=== PATIENT | male | born 1935 | race Caucasian/White ===

== ENCOUNTER 2019-03-04 12:23 | Emergency (ER) | payer MEDICARE, OTHER ==
[~2019-03-04] VITALS: Ht 193 cm; Wt 90.9 kg
[~2019-03-04 12:23] MED LIST: AMIO200T42 PO; ENOX40SY4 SQ; FINA5TAB4 PO; GLUC1CAP48 PO; GLUC1TAB53 PO; HYDR-3240 PO; HYDR25TA6 PO; LEVO100T5 PO; LEVO88TA2 PO; LEVO88TA4 PO; MELA10TA PO; METO25TA35 PO; MEXI150C PO; MULT1TAB13 PO; POTA10TA31 PO; POTA20TA14 PO
[2019-03-04] MEDS ORDERED: ASPI-496 PO (13:00)
[2019-03-04 13:01] LABS: BASOPHILS # (AUTO) 0.02 x10^3/uL (0-0.1); BASOPHILS % (AUTO) 0 % (0-1); EOSINOPHILS # (AUTO) 0.08 x10^3/uL (0-0.4); EOSINOPHILS % (AUTO) 1 % (1-7); LYMPHOCYTES # (AUTO) 0.94 x10^3/uL (1-3.4); LYMPHOCYTES % (AUTO) 9 % (22-44); MD NO; MEAN CORPUSCULAR HEMOGLOBIN 30.4 pg (27.5-34.5); MEAN CORPUSCULAR HGB CONC 32.3 g/dL (33.2-36.2); MEAN CORPUSCULAR VOLUME 94.3 fL (81-97); MEAN PLATELET VOLUME 6.9 fL (7.4-10.4); MONOCYTES # (AUTO) 0.77 x10^3/uL (0.2-0.8); MONOCYTES % (AUTO) 7 % (2-9); NEUTROPHILS # (AUTO) 8.62 x10^3/uL (1.8-6.8); NEUTROPHILS % (AUTO) 83 % (42-75); PLATELET COUNT 216 x10^3/uL (130-400); RED BLOOD COUNT 4.28 x10^6/uL (4.38-5.82)
[2019-03-04] MEDS ORDERED: FURO40TA6 PO (13:01)
[2019-03-04] MEDS ORDERED: GLUC1TAB55 PO (13:02)
[2019-03-04 13:12] LABS: ALBUMIN 3.1 g/dL (3.4-5.0); CHLORIDE 108 mmol/L (98-107)
[2019-03-04 13:22] LABS: ALANINE AMINOTRANSFERASE 21 U/L (12-78); ALKALINE PHOSPHATASE 121 U/L (45-117); ANION GAP 4 mmol/L (5-15); BILIRUBIN,TOTAL 0.7 mg/dL (0.2-1.0); CALCIUM 9.5 mg/dL (8.5-10.1); CREATININE 1.13 mg/dL (0.7-1.3); FREE T4 (FREE THYROXINE) 1.69 ng/dL (0.76-1.46); TOTAL PROTEIN 7.2 g/dL (6.4-8.2); TROPONIN I < 0.015 ng/mL (0.000-0.045)
--- NOTE | 2019-03-04 13:51 | NUR ---
PT HAS CO OF INCREASED WEAKNESS AND FORGETFULLNESS. PT FAMILY STATES "HE COULDNT GET OFF THE TOILET HIS AM, HE IS MUCH WEAKER AND SHORT OF BREATH" PT RESTING COMFORTABLE, NOT IN DISTRESS, COMPUTER SUPPORT TECHNICIAN APPLIED.
--- NOTE | 2019-03-04 14:45 | NUR ---
WALKED PT, SATS REMAINED 90-93% ON RA, HR REMAINS 65-67. NOTIFIED MD
[2019-03-04 15:00] LABS: MICROSCOPIC NOT IND
[2019-03-04 15:13] LABS: CULTURE INDICATED? NO
--- NOTE | 2019-03-04 15:36 | NUR ---
CANCEL REPEAT EKG PER MD ORDERS.
--- NOTE | 2019-03-04 15:44 | NUR ---
FAMILY ASSISTING PATIENT W GETTING DRESSED.
[2019-03-04 15:52] VITALS: BP 136/55
--- NOTE | 2019-03-04 15:53 | NUR ---
dPatient/Caregiver given discharge instructions and they have confirmed that they understand the instructions. Patient in wheelchair to lobby
== END 2019-03-04 15:55 | disposition home or self-care (01) ==
LOC: ED 15:31
DX: R53.1 Weakness (principal); R06.00 Dyspnea, unspecified; M79.661 Pain in right lower leg; M79.662 Pain in left lower leg; I10 Essential (primary) hypertension; E03.9 Hypothyroidism, unspecified
CPT/HCPCS: 36415; 71046; 80053; 81003; 83735; 83880; 84439; 84443; 84484; 85025; 93005; 99284

== ENCOUNTER 2021-02-03 11:09 | Inpatient (IN) | payer MEDICARE ==
[~2021-02-03] VITALS: Ht 180.3 cm; Wt 90.6 kg
[~2021-02-03 11:09] MED LIST changes: +ASPI-496 PO; +FURO40TA6 PO; +GLUC1TAB55 PO; +HYDR-2214 PO; -HYDR-3240 PO; +TAMS-11 PO
--- NOTE | 2021-02-03 11:14 | NUR ---
PT BELIA FROM [facility] FOR C/O INCREASED ALTERED MENTAL STATUS FOR DAYS. FAMILY ON SCENE CALLED EMS STATING PT HAS BEEN DECREASING AMS. PT SPO2 82-88% RA ANSWERER PLACED ON 3L NC. PT [id number]. PIV R-AC. 100 NS INFUSED ANSWERER. PT CHANGED INTO GOWN, ALL MONITORS IN PLACE. CALL LIGHT WITHIN REACH. FAMILY AT BS
--- NOTE | 2021-02-03 11:14 | NUR ---
ERP AT BS
[2021-02-03] MEDS ORDERED: SODIUM CHLORIDE FLUSH 10ML SYR IVF ONE (11:30)
[2021-02-03] MEDS ORDERED: SODIUM CHLORIDE 0.9% 1,000ML IVBOLUS ONE (11:30)
[2021-02-03] MEDS ORDERED: ACETAMINOPHEN 325 MG TABLET PO ONE (11:30)
--- NOTE | 2021-02-03 11:32 | NUR ---
XRAY AT BS
[2021-02-03] MEDS ORDERED: ACETAMINOPHEN 325 MG TABLET ONE (11:33)
--- NOTE | 2021-02-03 11:49 | NUR ---
LAB AT Addendum: 02/03/21 at 1152 by [email or web address] LAB AT , BLOOD CULTURES DRAWN
[2021-02-03 12:16] LABS: BASOPHILS % (AUTO) 0 % (0-1); EOSINOPHILS % (AUTO) 0 % (1-7); LYMPHOCYTES % (AUTO) 4 % (22-44); MEAN CORPUSCULAR HGB CONC 33.1 g/dL (33.2-36.2); MEAN PLATELET VOLUME 7.5 fL (7.4-10.4); MONOCYTES % (AUTO) 7 % (2-9); NEUTROPHILS % (AUTO) 89 % (42-75); PLATELET COUNT 128 x10^3/uL (130-400); RED BLOOD COUNT 4.41 x10^6/uL (4.38-5.82); RED CELL DISTRIBUTION WIDTH 14.3 % (9.4-14.8)
--- NOTE | 2021-02-03 12:20 | NUR ---
TASK RN: PT RESTING ON GURNEY. NADN. DRUMMOND.
[2021-02-03 12:28] LABS: ALANINE AMINOTRANSFERASE 15 U/L (12-78); ANION GAP 9 mmol/L (5-15); CALCIUM 10.1 mg/dL (8.5-10.1); CHLORIDE 107 mmol/L (98-107)
[2021-02-03 12:30] LABS: ALKALINE PHOSPHATASE 100 U/L (45-117); BILIRUBIN,TOTAL 1.8 mg/dL (0.2-1.0)
[2021-02-03 12:33] LABS: MICROSCOPIC INDICATED
--- NOTE | 2021-02-03 12:42 | NUR ---
PT TO CT
--- NOTE | 2021-02-03 12:55 | NUR ---
PT BACK FROM CT
--- NOTE | 2021-02-03 12:56 | NUR ---
ANTIBX HUNG AFTER PT BACK FROM CT. PT RESTING COMFORTABLY ON GURNEY. NADN/VSS. FAMILY AT BS. CALL LIGHT WITHIN REACH
[2021-02-03] MEDS ORDERED: PIPERACILLIN/TAZO 3.375 GM in DEXTROSE 5% 50 ML IVPB ONE (13:00)
[2021-02-03] MEDS ORDERED: VANCOMYCIN PER PHARMACY MC PRN ×2 (13:00→17:00)
[2021-02-03] MEDS ORDERED: VANCOMYCIN 1,900 MG in SODIUM CHLORIDE 0.9% 250 ML IV ONE (13:00)
[2021-02-03] MEDS ORDERED: VANCOMYCIN 1,900 MG in SODIUM CHLORIDE 0.9% 250 ML IV SCH (13:30)
--- NOTE | 2021-02-03 13:56 | NUR ---
PT LAYING ON DARWIN PLASENCIA/HODA. ANTIBX INFUSING. FAMILY AT BS. CALL LIGHT WITHIN REACH
--- NOTE | 2021-02-03 14:30 | NUR ---
EDTA AT BS FOR 2ND EKG
--- NOTE | 2021-02-03 15:06 | NUR ---
[facility] PER [facility] START 2L LR FOR PT. PT RECEVIED 500ML NS PRIOR TO CONTACTING [facility].
--- NOTE | 2021-02-03 15:15 | NUR ---
Pt to be admitted to [facility], room 485. Report called to ALICE.
[2021-02-03] MEDS ORDERED: LACTATED RINGERS 1,000 ML IVBOLUS ONE (16:00)
[2021-02-03 16:47] VITALS: BP 119/76
[2021-02-03] MEDS ORDERED: ONDANSETRON 2MG/ML, 2ML IVPush PRN (17:00)
[2021-02-03] MEDS ORDERED: ACETAMINOPHEN 325 MG TABLET PO PRN (17:00)
[2021-02-03] MEDS ORDERED: PHARMACOKINETIC CONSULTATION MC ONE (17:30)
[2021-02-03] MEDS ORDERED: PHARMACOKINETIC MONITORING MC PRN (17:30)
[2021-02-03] MEDS: PIPERACILLIN/TAZO 3.375 GM in DEXTROSE 5% 50 ML IV SCH (18:25)
[2021-02-03 19:19] VITALS: BP 107/62
[2021-02-03] MEDS: POTASSIUM CHLORIDE 20 MEQ TAB.ER.PRT PO SCH (20:46)
[2021-02-03] MEDS: FINASTERIDE 5 MG TABLET PO SCH (20:46)
[2021-02-03] MEDS: TAMSULOSIN 0.4 MG CAP.ER.24H PO SCH (20:47)
[2021-02-03] MEDS: AMIODARONE 200 MG TABLET PO SCH (20:47)
[2021-02-03] MEDS: METOPROLOL TARTRATE 25 MG TAB PO SCH (20:47)
[2021-02-03] MEDS: MELATONIN 5 MG TABLET PO SCH (20:47)
[2021-02-03] MEDS: MEXILETINE 150 MG CAPSULE PO SCH (20:50)
[2021-02-03 22:30] LABS: TROPONIN I 0.156 ng/mL (0.000-0.045)
[2021-02-04] MEDS: PIPERACILLIN/TAZO 3.375 GM in DEXTROSE 5% 50 ML IV SCH ×4 (00:50→18:21)
[2021-02-04] MEDS: ATORVASTATIN 40 MG TABLET PO SCH ×2 (00:50→20:46)
[2021-02-04] MEDS ORDERED: HEPARIN 5,000 UNITS/ML, 1ML IV PRN (01:00)
[2021-02-04] MEDS ORDERED: HEPARIN 25,000 UNITS/250ML PMX 250 ML IV PRN ×2 (01:00)
[2021-02-04] MEDS ORDERED: HEPARIN 5,000 UNITS/ML, 1ML IV ONE (01:00)
[2021-02-04 01:02] VITALS: BP 99/60
[2021-02-04 01:41] LABS: CHOL/HDL RATIO 1.5; LDL/HDL RATIO 0.4 (0.5-3.0)
[2021-02-04 04:43] LABS: BASOPHILS % (AUTO) 0 % (0-1); EOSINOPHILS % (AUTO) 0 % (1-7); LYMPHOCYTES % (AUTO) 4 % (22-44); MEAN CORPUSCULAR HEMOGLOBIN 30.5 pg (27.5-34.5); MEAN CORPUSCULAR HGB CONC 33.9 g/dL (33.2-36.2); MEAN PLATELET VOLUME 7.8 fL (7.4-10.4); MONOCYTES % (AUTO) 7 % (2-9); NEUTROPHILS % (AUTO) 88 % (42-75); PLATELET COUNT 105 x10^3/uL (130-400); RED BLOOD COUNT 3.92 x10^6/uL (4.38-5.82); RED CELL DISTRIBUTION WIDTH 14.6 % (9.4-14.8)
[2021-02-04 04:50] LABS: ANION GAP 6 mmol/L (5-15); CALCIUM 9.3 mg/dL (8.5-10.1); CHLORIDE 110 mmol/L (98-107); CREATININE 0.92 mg/dL (0.7-1.3)
[2021-02-04 05:01] LABS: TROPONIN I 0.151 ng/mL (0.000-0.045)
[2021-02-04] MEDS: LEVOTHYROXINE 175 MCG TABLET PO SCH (06:03)
[2021-02-04 08:50] VITALS: BP 104/64
[2021-02-04] MEDS: MULTIVITAMINS/MINERALS TABLET PO SCH (08:59)
[2021-02-04] MEDS: METOPROLOL TARTRATE 25 MG TAB PO SCH ×2 (09:00→20:45)
[2021-02-04 11:07] LABS: TROPONIN I 0.134 ng/mL (0.000-0.045)
[2021-02-04] MEDS: ASPIRIN 81 MG TABLET EC PO SCH (12:22)
[2021-02-04] MEDS: MEXILETINE 150 MG CAPSULE PO SCH ×2 (12:22→20:46)
[2021-02-04 14:08] VITALS: BP 104/58
[2021-02-04 14:12] VITALS: BP 104/58
[2021-02-04] MEDS: VANCOMYCIN 1,900 MG in SODIUM CHLORIDE 0.9% 250 ML IV SCH (14:34)
[2021-02-04 19:20] VITALS: BP 104/61
[2021-02-04] MEDS: POTASSIUM CHLORIDE 20 MEQ TAB.ER.PRT PO SCH (20:45)
[2021-02-04] MEDS: FINASTERIDE 5 MG TABLET PO SCH (20:45)
[2021-02-04] MEDS: AMIODARONE 200 MG TABLET PO SCH (20:45)
[2021-02-04] MEDS: TAMSULOSIN 0.4 MG CAP.ER.24H PO SCH (20:46)
[2021-02-04] MEDS: MELATONIN 5 MG TABLET PO SCH (20:46)
[2021-02-05] MEDS: PIPERACILLIN/TAZO 3.375 GM in DEXTROSE 5% 50 ML IV SCH ×4 (00:38→19:28)
[2021-02-05 00:47] VITALS: BP 98/64
[2021-02-05 01:37] VITALS: BP 98/64
[2021-02-05] MEDS: LEVOTHYROXINE 175 MCG TABLET PO SCH (06:00)
[2021-02-05 08:50] VITALS: BP 102/57
[2021-02-05] MEDS: METOPROLOL TARTRATE 25 MG TAB PO SCH ×2 (09:00→22:05)
[2021-02-05] MEDS: MEXILETINE 150 MG CAPSULE PO SCH ×2 (09:51→22:04)
[2021-02-05] MEDS: ASPIRIN 81 MG TABLET EC PO SCH (09:51)
[2021-02-05] MEDS: MULTIVITAMINS/MINERALS TABLET PO SCH (09:52)
[2021-02-05 13:41] VITALS: BP 96/58
[2021-02-05] MEDS: VANCOMYCIN 1,900 MG in SODIUM CHLORIDE 0.9% 250 ML IV SCH (14:54)
[2021-02-05] MEDS: POLYETHYLENE GLYCOL 17 GM PACKET PO SCH ×2 (18:00→22:06)
[2021-02-05 19:13] VITALS: BP 111/68
[2021-02-05] MEDS: MELATONIN 5 MG TABLET PO SCH (21:00)
[2021-02-05] MEDS: AMIODARONE 200 MG TABLET PO SCH (22:03)
[2021-02-05] MEDS: ATORVASTATIN 40 MG TABLET PO SCH (22:04)
[2021-02-05] MEDS: POTASSIUM CHLORIDE 20 MEQ TAB.ER.PRT PO SCH (22:04)
[2021-02-05] MEDS: FINASTERIDE 5 MG TABLET PO SCH (22:06)
[2021-02-05] MEDS: TAMSULOSIN 0.4 MG CAP.ER.24H PO SCH (22:06)
[2021-02-05 22:11] VITALS: BP 104/66
[2021-02-06 00:33] VITALS: BP 100/58
[2021-02-06] MEDS: PIPERACILLIN/TAZO 3.375 GM in DEXTROSE 5% 50 ML IV SCH ×4 (01:05→18:39)
[2021-02-06] MEDS: LEVOTHYROXINE 175 MCG TABLET PO SCH (05:09)
[2021-02-06 07:59] LABS: BASOPHILS % (AUTO) 0 % (0-1); EOSINOPHILS % (AUTO) 1 % (1-7); LYMPHOCYTES % (AUTO) 5 % (22-44); MEAN CORPUSCULAR HEMOGLOBIN 30.4 pg (27.5-34.5); MEAN CORPUSCULAR HGB CONC 33.3 g/dL (33.2-36.2); MEAN PLATELET VOLUME 7.6 fL (7.4-10.4); MONOCYTES % (AUTO) 9 % (2-9); NEUTROPHILS % (AUTO) 85 % (42-75); PLATELET COUNT 138 x10^3/uL (130-400); RED BLOOD COUNT 3.49 x10^6/uL (4.38-5.82); RED CELL DISTRIBUTION WIDTH 14.2 % (9.4-14.8)
[2021-02-06 08:07] LABS: ALBUMIN 1.9 g/dL (3.4-5.0); ANION GAP 5 mmol/L (5-15); CALCIUM 9.3 mg/dL (8.5-10.1); CHLORIDE 107 mmol/L (98-107)
[2021-02-06 08:12] LABS: ALANINE AMINOTRANSFERASE 13 U/L (12-78); ALKALINE PHOSPHATASE 85 U/L (45-117); BILIRUBIN,TOTAL 0.7 mg/dL (0.2-1.0); CREATININE 0.87 mg/dL (0.7-1.3); TOTAL PROTEIN 5.2 g/dL (6.4-8.2); TROPONIN I 0.169 ng/mL (0.000-0.045)
[2021-02-06 08:17] VITALS: BP 105/63
[2021-02-06] MEDS: POLYETHYLENE GLYCOL 17 GM PACKET PO SCH ×3 (09:28→20:39)
[2021-02-06] MEDS: MEXILETINE 150 MG CAPSULE PO SCH ×2 (09:30→20:39)
[2021-02-06] MEDS: ASPIRIN 81 MG TABLET EC PO SCH (09:32)
[2021-02-06] MEDS: METOPROLOL TARTRATE 25 MG TAB PO SCH ×2 (09:34→20:39)
[2021-02-06] MEDS: MULTIVITAMINS/MINERALS TABLET PO SCH (09:38)
[2021-02-06 12:49] VITALS: BP 104/67
[2021-02-06] MEDS ORDERED: VANCOMYCIN 2,100 MG in SODIUM CHLORIDE 0.9% 500 ML IV SCH (14:30)
[2021-02-06 20:00] VITALS: BP 122/61
[2021-02-06] MEDS: MELATONIN 5 MG TABLET PO SCH (20:39)
[2021-02-06] MEDS: FINASTERIDE 5 MG TABLET PO SCH (20:39)
[2021-02-06] MEDS: TAMSULOSIN 0.4 MG CAP.ER.24H PO SCH (20:39)
[2021-02-06] MEDS: ATORVASTATIN 40 MG TABLET PO SCH (20:39)
[2021-02-06] MEDS: POTASSIUM CHLORIDE 20 MEQ TAB.ER.PRT PO SCH (20:39)
[2021-02-06] MEDS: AMIODARONE 200 MG TABLET PO SCH (20:39)
[2021-02-07 00:57] VITALS: BP 98/60
[2021-02-07] MEDS: PIPERACILLIN/TAZO 3.375 GM in DEXTROSE 5% 50 ML IV SCH ×4 (01:28→18:13)
[2021-02-07] MEDS: LEVOTHYROXINE 175 MCG TABLET PO SCH (05:53)
[2021-02-07 08:37] VITALS: BP 113/72
[2021-02-07] MEDS: POLYETHYLENE GLYCOL 17 GM PACKET PO SCH ×3 (09:00→21:12)
[2021-02-07] MEDS: MEXILETINE 150 MG CAPSULE PO SCH ×2 (09:07→21:11)
[2021-02-07] MEDS: MULTIVITAMINS/MINERALS TABLET PO SCH (09:07)
[2021-02-07] MEDS: METOPROLOL TARTRATE 25 MG TAB PO SCH ×2 (09:07→21:11)
[2021-02-07] MEDS: ASPIRIN 81 MG TABLET EC PO SCH (09:07)
[2021-02-07 09:24] LABS: BASOPHILS % (AUTO) 0 % (0-1); EOSINOPHILS % (AUTO) 3 % (1-7); LYMPHOCYTES % (AUTO) 6 % (22-44); MEAN CORPUSCULAR HEMOGLOBIN 30.6 pg (27.5-34.5); MEAN CORPUSCULAR HGB CONC 33.7 g/dL (33.2-36.2); MEAN PLATELET VOLUME 7.3 fL (7.4-10.4); MONOCYTES % (AUTO) 8 % (2-9); NEUTROPHILS % (AUTO) 83 % (42-75); PLATELET COUNT 182 x10^3/uL (130-400); RED BLOOD COUNT 3.78 x10^6/uL (4.38-5.82); RED CELL DISTRIBUTION WIDTH 14.1 % (9.4-14.8)
[2021-02-07 09:34] LABS: ANION GAP 6 mmol/L (5-15); CALCIUM 9.9 mg/dL (8.5-10.1); CHLORIDE 107 mmol/L (98-107); CREATININE 0.81 mg/dL (0.7-1.3)
[2021-02-07 14:10] VITALS: BP 105/65
[2021-02-07 19:27] VITALS: BP 111/68
[2021-02-07 21:10] VITALS: BP 134/61
[2021-02-07] MEDS: AMIODARONE 200 MG TABLET PO SCH (21:11)
[2021-02-07] MEDS: POTASSIUM CHLORIDE 20 MEQ TAB.ER.PRT PO SCH (21:11)
[2021-02-07] MEDS: TAMSULOSIN 0.4 MG CAP.ER.24H PO SCH (21:11)
[2021-02-07] MEDS: ATORVASTATIN 40 MG TABLET PO SCH (21:11)
[2021-02-07] MEDS: FINASTERIDE 5 MG TABLET PO SCH (21:11)
[2021-02-07] MEDS: MELATONIN 5 MG TABLET PO SCH (21:12)
[2021-02-08] MEDS: PIPERACILLIN/TAZO 3.375 GM in DEXTROSE 5% 50 ML IV SCH ×4 (00:54→18:26)
[2021-02-08 01:47] VITALS: BP 106/62
[2021-02-08] MEDS: LEVOTHYROXINE 175 MCG TABLET PO SCH (05:39)
[2021-02-08 06:29] VITALS: BP 109/64
[2021-02-08] MEDS ORDERED: ASPIRIN 81 MG TABLET CHEW ONE (08:29)
[2021-02-08] MEDS: MULTIVITAMINS/MINERALS TABLET PO SCH (08:33)
[2021-02-08] MEDS: MEXILETINE 150 MG CAPSULE PO SCH ×2 (08:33→20:58)
[2021-02-08] MEDS: ASPIRIN 81 MG TABLET CHEW PO SCH (08:33)
[2021-02-08 08:35] VITALS: BP 100/60
[2021-02-08] MEDS: POLYETHYLENE GLYCOL 17 GM PACKET PO SCH ×3 (08:35→21:00)
[2021-02-08] MEDS: METOPROLOL TARTRATE 25 MG TAB PO SCH ×2 (08:36→20:57)
[2021-02-08 13:57] VITALS: BP 109/63
[2021-02-08] MEDS ORDERED: ATOR40TA78 PO (16:07)
[2021-02-08] MEDS ORDERED: AMOX1TAB64 PO (16:07)
[2021-02-08 18:54] VITALS: BP 119/64
[2021-02-08] MEDS: ATORVASTATIN 40 MG TABLET PO SCH (20:57)
[2021-02-08] MEDS: POTASSIUM CHLORIDE 20 MEQ TAB.ER.PRT PO SCH (20:57)
[2021-02-08] MEDS: MELATONIN 5 MG TABLET PO SCH (20:57)
[2021-02-08] MEDS: AMIODARONE 200 MG TABLET PO SCH (20:58)
[2021-02-08] MEDS: TAMSULOSIN 0.4 MG CAP.ER.24H PO SCH (20:58)
[2021-02-08] MEDS: FINASTERIDE 5 MG TABLET PO SCH (20:59)
[2021-02-08 21:00] VITALS: BP 124/70
[2021-02-09] MEDS: PIPERACILLIN/TAZO 3.375 GM in DEXTROSE 5% 50 ML IV SCH ×2 (00:17→05:55)
[2021-02-09 02:33] VITALS: BP 114/70
[2021-02-09] MEDS: LEVOTHYROXINE 175 MCG TABLET PO SCH (05:56)
[2021-02-09 07:20] VITALS: BP 118/62
[2021-02-09] MEDS: POLYETHYLENE GLYCOL 17 GM PACKET PO SCH (09:00)
[2021-02-09] MEDS: METOPROLOL TARTRATE 25 MG TAB PO SCH (09:00)
[2021-02-09] MEDS: ASPIRIN 81 MG TABLET CHEW PO SCH (11:17)
[2021-02-09] MEDS: MULTIVITAMINS/MINERALS TABLET PO SCH (11:17)
[2021-02-09] MEDS: MEXILETINE 150 MG CAPSULE PO SCH (11:18)
== END 2021-02-09 12:06 | DRG 871 ==
LOC: ED 13:16 → SUATTDRO 13:32 → 4EST 16:34
PROVIDERS: ADMIT Internal Medicine; ATTEND Internal Medicine
PROC: 0T9B30Z Drainage of Bladder with Drainage Device, Percutaneous Approach (ICD-10-PCS; principal; 2021-02-03)
DX: A41.9 Sepsis, unspecified organism (principal); G92 Toxic encephalopathy; J69.0 Pneumonitis due to inhalation of food and vomit; J96.01 Acute respiratory failure with hypoxia; I21.A1 Myocardial infarction type 2; R65.21 Severe sepsis with septic shock; E46 Unspecified protein-calorie malnutrition; Z20.822 Contact with and (suspected) exposure to COVID-19; D69.6 Thrombocytopenia, unspecified; E03.9 Hypothyroidism, unspecified; E86.0 Dehydration; I10 Essential (primary) hypertension; I25.10 Atherosclerotic heart disease of native coronary artery without angina pectoris; I25.2 Old myocardial infarction; I35.0 Nonrheumatic aortic (valve) stenosis; I48.91 Unspecified atrial fibrillation; L89.152 Pressure ulcer of sacral region, stage 2; M19.019 Primary osteoarthritis, unspecified shoulder; M75.100 Unspecified rotator cuff tear or rupture of unspecified shoulder, not specified as traumatic; N40.0 Benign prostatic hyperplasia without lower urinary tract symptoms; Z66 Do not resuscitate; Z95.1 Presence of aortocoronary bypass graft; Z95.810 Presence of automatic (implantable) cardiac defibrillator; Z99.3 Dependence on wheelchair; Z68.27 Body mass index [BMI] 27.0-27.9, adult; Z79.899 Other long term (current) drug therapy; Z79.891 Long term (current) use of opiate analgesic; Z79.01 Long term (current) use of anticoagulants; Z79.82 Long term (current) use of aspirin; Z88.8 Allergy status to other drugs, medicaments and biological substances
CPT/HCPCS: 36415; 70450; 71045; 71250; 74230; 80048; 80053; 80061; 80202; 81001; 82962; 83605; 83615; 83735; 84100; 84145; 84443; 84484; 85025; 85520; 86140; 87040; 87081; 87086; 93005; 93306; 96360; 96361; G0378; J1644; J2543; J3370; U0005; J7030; J7040; J7050; J7120; U0003

== ENCOUNTER 2021-02-14 04:14 | Inpatient (IN) | payer MEDICARE ==
[~2021-02-14] VITALS: Ht 193 cm; Wt 87.5 kg
[~2021-02-14 04:14] MED LIST changes: +AMOX1TAB64 PO; +ATOR40TA78 PO
[2021-02-14] MEDS ORDERED: DIPH,PERTUSS(ACELL),TET VAC/PF 0.5 ML IM-VACC ONE ×2 (04:30→06:16)
[2021-02-14] MEDS ORDERED: NEOSPORIN OINT. PKT 1 PACKET ONE (04:51)
[2021-02-14 05:20] LABS: BASOPHILS % (AUTO) 1 % (0-1); EOSINOPHILS % (AUTO) 3 % (1-7); LYMPHOCYTES % (AUTO) 6 % (22-44); MEAN CORPUSCULAR HEMOGLOBIN 29.6 pg (27.5-34.5); MEAN CORPUSCULAR HGB CONC 33.3 g/dL (33.2-36.2); MEAN PLATELET VOLUME 6.5 fL (7.4-10.4); MONOCYTES % (AUTO) 6 % (2-9); NEUTROPHILS % (AUTO) 84 % (42-75); PLATELET COUNT 316 x10^3/uL (130-400); RED BLOOD COUNT 3.94 x10^6/uL (4.38-5.82); RED CELL DISTRIBUTION WIDTH 14.6 % (9.4-14.8)
--- NOTE | 2021-02-14 05:24 | NUR ---
Pt BIB EMS from [facility] at [facility], pt and staff report no LOC, small abrasion to R upper forehead. Pt placed on BP and O2 monitors, wears 2L NC at all times and sits at 92-93%. Currently wearing 5L NC and at 91%. VSS, WCTM
--- NOTE | 2021-02-14 05:26 | NUR ---
Pt desat to 7-80% on 5L NC when asleep, placed on 8L simple mask and maintaing O2 sat of 92%. WCTM
[2021-02-14 05:35] LABS: ANION GAP 3 mmol/L (5-15); CALCIUM 9.5 mg/dL (8.5-10.1); CHLORIDE 110 mmol/L (98-107); CREATININE 0.77 mg/dL (0.7-1.3)
[2021-02-14 05:38] LABS: TROPONIN I 0.069 ng/mL (0.000-0.045)
[2021-02-14] MEDS ORDERED: AZITHROMYCIN 500 MG in SODIUM CHLORIDE 0.9% 250 ML IV ONE (06:00)
[2021-02-14] MEDS ORDERED: CEFTRIAXONE 1,000 MG in DEXTROSE 5% 50 ML IVPB ONE (06:00)
--- NOTE | 2021-02-14 07:08 | NUR ---
Report to Anh OVERTON
--- NOTE | 2021-02-14 07:14 | NUR ---
Report to Marybel OVERTON
[2021-02-14 08:17] VITALS: BP 120/76
[2021-02-14 08:53] VITALS: BP 120/76
[2021-02-14] MEDS ORDERED: ACETAMINOPHEN 325 MG TABLET PO PRN (10:00)
[2021-02-14] MEDS ORDERED: ONDANSETRON ODT 4 MG PO PRN (10:00)
[2021-02-14] MEDS ORDERED: ONDANSETRON 2MG/ML, 2ML IVPush PRN (10:00)
[2021-02-14 10:14] LABS: TROPONIN I 0.072 ng/mL (0.000-0.045)
[2021-02-14] MEDS ORDERED: VANCOMYCIN PER PHARMACY MC PRN (12:30)
[2021-02-14 12:43] VITALS: BP 115/75
[2021-02-14] MEDS ORDERED: PHARMACOKINETIC MONITORING MC PRN (13:00)
[2021-02-14] MEDS: VANCOMYCIN 1,400 MG in SODIUM CHLORIDE 0.9% 250 ML IV SCH (13:22)
[2021-02-14] MEDS: PIPERACILLIN/TAZO 3.375 GM in DEXTROSE 5% 50 ML IVPB SCH ×2 (13:22→20:39)
[2021-02-14 16:51] LABS: TROPONIN I 0.053 ng/mL (0.000-0.045)
[2021-02-14 20:08] VITALS: BP 109/68
[2021-02-14 23:45] VITALS: BP 104/62
[2021-02-15] MEDS: PIPERACILLIN/TAZO 3.375 GM in DEXTROSE 5% 50 ML IVPB SCH ×2 (04:12→12:30)
[2021-02-15 05:57] LABS: BASOPHILS % (AUTO) 1 % (0-1); EOSINOPHILS % (AUTO) 4 % (1-7); LYMPHOCYTES % (AUTO) 7 % (22-44); MEAN CORPUSCULAR HEMOGLOBIN 29.7 pg (27.5-34.5); MEAN CORPUSCULAR HGB CONC 33.7 g/dL (33.2-36.2); MEAN PLATELET VOLUME 6.7 fL (7.4-10.4); MONOCYTES % (AUTO) 4 % (2-9); NEUTROPHILS % (AUTO) 84 % (42-75); PLATELET COUNT 294 x10^3/uL (130-400); RED BLOOD COUNT 3.58 x10^6/uL (4.38-5.82); RED CELL DISTRIBUTION WIDTH 14.2 % (9.4-14.8)
[2021-02-15 06:05] LABS: ALANINE AMINOTRANSFERASE 32 U/L (12-78); ALBUMIN 1.7 g/dL (3.4-5.0); ANION GAP 2 mmol/L (5-15); CALCIUM 9.2 mg/dL (8.5-10.1); CHLORIDE 112 mmol/L (98-107); CREATININE 0.85 mg/dL (0.7-1.3)
[2021-02-15 06:07] LABS: ALKALINE PHOSPHATASE 99 U/L (45-117); BILIRUBIN,TOTAL 0.6 mg/dL (0.2-1.0); TOTAL PROTEIN 5.2 g/dL (6.4-8.2)
[2021-02-15 06:30] VITALS: BP 121/68
[2021-02-15] MEDS: VANCOMYCIN 1,400 MG in SODIUM CHLORIDE 0.9% 250 ML IV SCH (06:41)
[2021-02-15 12:05] VITALS: BP 115/68
[2021-02-15] MEDS ORDERED: FUROSEMIDE 40 MG/4 ML IV ONE (15:30)
[2021-02-15] MEDS ORDERED: CEFTRIAXONE 2 GM in DEXTROSE 5% 50 ML IVPB SCH (15:30)
[2021-02-15] MEDS: DOXYCYCLINE 100 MG in DEXTROSE 5% 250 ML IV SCH (15:51)
[2021-02-15 20:11] VITALS: BP 105/66
[2021-02-16 01:53] VITALS: BP 99/57
[2021-02-16] MEDS: DOXYCYCLINE 100 MG in DEXTROSE 5% 250 ML IV SCH (04:22)
[2021-02-16 06:17] VITALS: BP 108/60
[2021-02-16 07:55] LABS: BASOPHILS % (AUTO) 1 % (0-1); EOSINOPHILS % (AUTO) 4 % (1-7); LYMPHOCYTES % (AUTO) 8 % (22-44); MEAN CORPUSCULAR HEMOGLOBIN 29.4 pg (27.5-34.5); MEAN PLATELET VOLUME 6.5 fL (7.4-10.4); MONOCYTES % (AUTO) 6 % (2-9); NEUTROPHILS % (AUTO) 80 % (42-75); PLATELET COUNT 321 x10^3/uL (130-400); RED BLOOD COUNT 3.68 x10^6/uL (4.38-5.82); RED CELL DISTRIBUTION WIDTH 14.2 % (9.4-14.8)
[2021-02-16] MEDS ORDERED: CEFT2FRO2 IV (11:25)
[2021-02-16] MEDS ORDERED: DOXY100T PO (11:25)
[2021-02-16 12:29] VITALS: BP 115/64
== END 2021-02-16 15:30 | DRG 189 ==
LOC: MERGE 04:14 → ED 05:00 → 5SO 06:14 → SUATTDRO 06:58
PROVIDERS: ADMIT Internal Medicine; ATTEND Family Medicine
DX: J96.21 Acute and chronic respiratory failure with hypoxia (principal); J18.0 Bronchopneumonia, unspecified organism; I50.33 Acute on chronic diastolic (congestive) heart failure; I21.4 Non-ST elevation (NSTEMI) myocardial infarction; L89.92 Pressure ulcer of unspecified site, stage 2; S00.81XA Abrasion of other part of head, initial encounter; S09.90XA Unspecified injury of head, initial encounter; W06.XXXA Fall from bed, initial encounter; R53.81 Other malaise; N40.0 Benign prostatic hyperplasia without lower urinary tract symptoms; E03.9 Hypothyroidism, unspecified; Z87.01 Personal history of pneumonia (recurrent); Y93.89 Activity, other specified; Y92.098 Other place in other non-institutional residence as the place of occurrence of the external cause; Y99.8 Other external cause status; Z95.810 Presence of automatic (implantable) cardiac defibrillator
CPT/HCPCS: 36415; 70450; 71045; 80048; 80053; 82040; 83735; 83880; 84145; 84484; 85025; 87040; 90471; 90715; 93005; 96374; G0378; J0696; J1940; J2543; J3370; J7060; J7050